=== PATIENT | female | born 1995 | race Caucasian/White ===

== ENCOUNTER 2016-04-17 16:29 | Emergency (ER) | payer OTHER ==
[2016-04-17] MEDS ORDERED: METOCLOPRAMIDE 10 MG/2 ML VIAL ONE (18:30)
== END 2016-04-17 19:23 | disposition home or self-care (01) ==
LOC: ER 16:29
DX: O21.9 Vomiting of pregnancy, unspecified (principal); Z3A.00 Weeks of gestation of pregnancy not specified
CPT/HCPCS: 36415; 80053; 81001; 83690; 84702; 85025; 96374